=== PATIENT | female | born 1995 | race Native Hawaiian/Other Pacific Islander ===

== ENCOUNTER 2018-08-03 05:30 | Inpatient (IN) | payer BC, OTHER ==
[2018-08-03] MEDS ORDERED: METHYLERGONOVINE 0.2 MG/ML 1 ML AMP IM PRN (06:10)
[2018-08-03] MEDS ORDERED: TERBUTALINE 1 MG/ML VIAL SQ PRN (06:10)
[2018-08-03] MEDS ORDERED: LIDOCAINE 1% INJ 10MG/ML (20 ML MDV) SQ PRN (06:10)
[2018-08-03] MEDS ORDERED: CARBOPROST TROMETHAMINE 250 MCG/ML 1 ML AMP IM PRN (06:10)
[2018-08-03] MEDS ORDERED: OXYTOCIN 10 UNIT/ML 1 ML VIAL IM PRN (06:10)
[2018-08-03 07:08] VITALS: BMI 35.4
[2018-08-03 07:50] LABS: Appearance,Urine Clear (Clear); Bacteria,Urine Rare /hpf; Bilirubin,Urine Negative (Negative); Blood,Urine Trace (Negative); Color,Urine Light Yellow; Glucose,Urine (UA) Negative (Negative); Ketones,Urine Negative (Negative); Leukocyte Esterase,Urine Negative (Negative); Nitrite,Urine Negative (Negative); PH, Urine 6.5 (5.0-8.0); Protein,Urine Negative (Negative); RBC,Urine 3 /hpf (0-5); Specific Gravity,Urine 1.006 (1.001-1.035); Squamous Epithelial Cell,Urine <1 /hpf (0-4); Urobilinogen,Urine <2.0 mg/dL (<2.0); WBC,Urine 2 /hpf (0-5)
[2018-08-03 10:59] LABS: Amphetamine Screen,Urine Not Detected (NotDetected); Barbiturate Screen,Urine Not Detected (NotDetected); Benzodiazepines Screen,Urine Not Detected (NotDetected); Cocaine Screen,Urine Not Detected (NotDetected); Methadone Screen, Urine Not Detected (NotDetected); Opiate Screen,Urine Not Detected (NotDetected); Oxycodone Screen, Urine Not Detected (NotDetected); Phencyclidine Screen,Urine Not Detected (NotDetected); Tricyclic Antidepressant,Urine Not Detected (NotDetected); Urn Cannabinoid Scrn Not Detected (NotDetected)
[2018-08-03] MEDS ORDERED: LIDOCAINE-PRILOCAINE 2.5-2.5% CREAM 5 GM TUBE TOPICAL STA (14:38)
[2018-08-03] MEDS ORDERED: AMPICILLIN 2,000 MG in SODIUM CHLORIDE 0.9% 100 ML IVPB STA (15:49)
[2018-08-03] MEDS ORDERED: OXYTOCIN 20 UNITS/1000 ML NS 1,000 ML IV SCH (16:00)
[2018-08-03] MEDS: LACTATED RINGERS 1,000 ML IV SCH (16:01)
[2018-08-03 16:08] LABS: Basophils % (A) 0 %; Eosinophils % (A) 0 %; HCT 37.6 % (34.0-46.0); HGB 12.6 gm/dL (11.4-16.0); Lymphocytes # (A) 1.1 k/uL (1.0-4.8); Lymphocytes % (A) 5 %; MCHC 33.4 g/dL (31.0-37.0); MCV 95.7 fL (80.0-100.0); Mean Platelet Volume 8.8; Monocytes # (A) 1.1 k/uL (0-1.0); Monocytes % (A) 5 %; Neutrophils # (A) 18.7 k/uL (1.3-7.7); Neutrophils % (A) 88 %; Platelet Count 214 k/uL (150-450); RBC 3.93 m/uL (3.80-5.40); RDW 13.5 % (11.5-15.5); WBC 21.2 k/uL (3.8-10.6)
[2018-08-03] MEDS ORDERED: BUTORPHANOL 1 MG/ML 1 ML VIAL IV PRN (16:45)
[2018-08-03] MEDS ORDERED: ROPIVACAINE 5MG/ML 20ML VIAL ONE (19:40)
[2018-08-03] MEDS ORDERED: fentaNYL (PF) 50 MCG/ML 5 ML AMP ONE (19:40)
[2018-08-03] MEDS ORDERED: SODIUM CHLORIDE 0.9% 100 ML BAG ONE (19:40)
[2018-08-03] MEDS: AMPICILLIN 1,000 MG in SODIUM CHLORIDE 0.9% 50 ML IVPB SCH (20:31)
[2018-08-03 23:40] LABS: HIV 1 AB Non-Reactive (Non-Reactive); HIV AB P24 Non-Reactive (Non-Reactive); HIV P24 AG Non-Reactive (Non-Reactive)
[2018-08-04] MEDS: AMPICILLIN 1,000 MG in SODIUM CHLORIDE 0.9% 50 ML IVPB SCH (00:39)
[2018-08-04] MEDS: LACTATED RINGERS 1,000 ML IV SCH (00:39)
[2018-08-04] MEDS ORDERED: BENZOCAINE/MENTHOL SPRAY 1 GM/SPRAY AEROSOL TOPICAL PRN (01:09)
[2018-08-04] MEDS ORDERED: HYDROCORTISONE 2.5% RECTAL CREAM 30 GM TUBE RECTAL PRN (01:09)
[2018-08-04] MEDS ORDERED: WITCH HAZEL 1 EACH MED..PAD TOPICAL PRN (01:09)
[2018-08-04] MEDS ORDERED: LANOLIN CREAM 5 GM TUBE TOPICAL PRN (01:09)
[2018-08-04] MEDS ORDERED: diphenhydrAMINE 50 MG/ML 1 ML VIAL IVP PRN ×2 (01:09)
[2018-08-04] MEDS ORDERED: diphenhydrAMINE 25 MG CAP PO PRN (01:09)
[2018-08-04] MEDS ORDERED: IBUPROFEN 600 MG TAB PO PRN (01:09)
[2018-08-04] MEDS ORDERED: diphenhydrAMINE 50 MG CAP PO PRN (01:09)
[2018-08-04] MEDS ORDERED: ZOLPIDEM 5 MG TAB PO PRN (01:09)
[2018-08-04] MEDS ORDERED: SIMETHICONE 80 MG CHEWABLE PO PRN (01:09)
[2018-08-04] MEDS ORDERED: ACETAMINOPHEN TAB 325 MG TAB PO PRN (01:09)
[2018-08-04] MEDS ORDERED: OXYTOCIN 20 UNITS/1000 ML NS 1,000 ML IV SCH (01:15)
--- NOTE | 2018-08-04 01:19 | P.HPOB ---
History of Present Illness H&P Date: 08/03/18 Chief Complaint: SROM 22 year old presents at 39 weeks 6 days with spontaneous rupture of membranes at 3:30 AM on 08/03/2018. She presented to the hospital 1-2 cm dilated, 80% effaced, and -2 station. She was glenny irregularly. heart tones 130 to 135 with moderate variability and reactive. Review of Systems All systems: negative Constitutional: Denies chills, Denies fever Eyes: denies blurred vision, denies pain Ears, nose, mouth and throat: Denies headache, Denies sore throat Cardiovascular: Denies chest pain, Denies shortness of breath Respiratory: Denies cough Gastrointestinal: Denies abdominal pain, Denies diarrhea, Denies nausea, Denies vomiting Genitourinary: Denies dysuria, Denies hematuria Musculoskeletal: Denies myalgias Integumentary: Denies pruritus, Denies rash Neurological: Denies numbness, Denies weakness Psychiatric: Denies anxiety, Denies depression Endocrine: Denies fatigue, Denies weight change Past Medical History Past Medical History: No Reported History Additional Past Medical History / Comment(s): OB history: She has had care with me since the first trimester but has refused to get any type of bloodwork done for the due to a phobia of needles. Normal anatomy US- male, GBS neg. History of Any Multi-Drug Resistant Organisms: None Reported Additional Past Surgical History / Comment(s): dental surg Past Anesthesia/Blood Transfusion Reactions: No Reported Reaction Past Psychological History: Anxiety Smoking Status: Former smoker Past Alcohol Use History: None Reported Past Drug Use History: None Reported - Past Family History Father Family Medical History: Asthma Medications and Allergies Home Medications Medication Instructions Recorded Confirmed Type Pnv,Calcium 72/Iron/Folic Acid 1 tab PO DAILY 08/03/18 08/03/18 History [ Plus Tablet] Allergies Allergy/AdvReac Type Severity Reaction Status Date / Time No Known Allergies Allergy Verified 08/03/18 06:10 Exam Osteopathic Statement: *. No significant issues noted on an osteopathic structural exam other than those noted in the History and Physical/Consult. Vital Signs Temp Pulse Resp BP 08/03/18 05:30 96.8 F L 96 20 120/76 Intake and Output 08/03/18 08/03/18 08/04/18 14:59 22:59 05:59 Intake Total 100 Output Total 200 Balance 100 -200 Intake: Oral 100 Output: Urine 200 Other: # Voids 3 Heart: Regular rate and rhythm Lungs: Clear to auscultation bilaterally Abdomen: Soft, nontender Extremities: Negative Homans sign Results Result Diagrams: 08/03/18 15:30 08/03/18 15:30 Abnormal Lab Results - Last 24 Hours (Table) 08/03/18 08/03/18 Range/Units 07:11 15:30 WBC 21.2 H (3.8-10.6) k/uL Neutrophils # 18.7 H (1.3-7.7) k/uL Monocytes # 1.1 H (0-1.0) k/uL Urine Blood Trace H (Negative) Urine Bacteria Rare H (None) /hpf Assessment and Plan (1) Spontaneous rupture of membranes Current Visit: Yes Status: Acute Code(s): [id number] - SNOMED Code(s): 225184891 Plan: 1. admit to [facility] 2. pitocin augmentation if necessary 3. draw labs 4. anticipate normal vaginal delivery
--- NOTE | 2018-08-04 01:29 | P.PROBDLV ---
Vaginal Delivery Note - . Vaginal Delivery Note: 22-year-old presented at 39 weeks and 6 days was sent instrument at 3:30 AM, clear fluid noted. Her cervix is dilated 1-2 cm, 80% effaced, -2 station. She is glenny irregularly. heart tones 130 to 135 with moderate variability and reactive. When she presented to the hospital she was told she was maintained needing IV and some labs drawn. She knew this from the office, we had extensive conversations about this in the office and she was aware that this was going to be part of the delivery process. Rosy, despite saying that she would consent to NIV would not give the nurses or me for hand or arm 2 with IV into. She would get set up for the IV and then pulled her arm away at the last minute. This went on for several hours. Finally Hemo-Flow plan to give her some nitrous oxide to relax her and then get the IV in her left arm. At this time labs were also drawn. The baby's heart rate was 145-150 throughout this procedure continued with moderate variability. At this point she was almost 12 hours ruptured and I did start IV antibiotics, ampicillin, because she was still 3 cm dilated, 90% effaced, and -1 station. Also started Pitocin augmentation. Her contractions get closer together and stronger. When she was about 4 cm dilated she did get an epidural and was comfortable with that. She was told not to get up out of bed with this epidural several times by the nursing staff and anesthesia. At one point though she was found out of bed in the bathroom having gotten there by herself and with a family member. Thankfully she was not injured or have a fall. When she was 7 cm dilated she started to squat on the bed and push involuntarily. She was completely dilated at 1:15 AM, pushed, and delivered a viable male infant over midline episiotomy under epidural anesthesia at 1:40 AM Episiotomy was cut after the patient had pushed to and then started to panic because she was in more pain. Head delivered OA, anterior shoulder delivered gentle downward guidance followed by posterior shoulder and rest of body. Nose and mouth bulb suctioned , cord clamped and cut, placed on mother's abdomen. Apgars 8, 8, weight 8 lbs. 10 oz. Placenta delivered spontaneously, intact with three-vessel cord at 1:44 AM. Pitocin bolus was started and I drained her blood bladder of all urine. Vagina, cervix, and perineum were inspected. Second-degree midline episiotomy was repaired with 3-0 Vicryl. At this time she was noted to have some increased bleeding site evacuated. Several clots, and if her Methergine 0.2 IM in the right thigh. EBL 200 mL. Mother and baby in stable condition.
[2018-08-04] MEDS: SENNOSIDES-DOCUSATE SODIUM 1 EACH TAB PO SCH (15:35)
[2018-08-05] MEDS: SENNOSIDES-DOCUSATE SODIUM 1 EACH TAB PO SCH ×2 (00:05→08:00)
--- NOTE | 2018-08-05 08:19 | P.DS ---
Providers Date of admission: 08/03/18 05:31 Expected date of discharge: 08/05/18 Attending physician: Jocelynn Dawkins Primary care physician: Stated None - Discharge Diagnosis(es) (1) Spontaneous rupture of membranes Current Visit: Yes Status: Resolved (2) Normal vaginal delivery Current Visit: Yes Status: Acute Hospital Course: Patient presented with spontaneous rupture of membranes. She underwent Pitocin augmentation and normal vaginal delivery under epidural anesthesia. Her course was uncomplicated. She'll be discharged home day # 1 in stable condition to follow-up with me in 6 weeks. Plan - Discharge Summary New Discharge Prescriptions: No Action Pnv,Calcium 72/Iron/Folic Acid [ Plus Tablet] 1 tab PO DAILY Discharge Medication List Pnv,Calcium 72/Iron/Folic Acid [ Plus Tablet] 1 tab PO DAILY 08/03/18 [ History] Follow up Appointment(s)/Referral(s): Jocelynn Dawkins DO [Doctor of Osteopathic Medicine] - 6 Weeks Discharge Disposition: HOME SELF-CARE
[2018-08-05 08:52] VITALS: BP 114/65; PULSE 85; RESP 18; TEMP 98.1
== END 2018-08-05 15:45 | disposition home or self-care (01) | DRG 807 ==
LOC: FBPOP 05:30 → 4FBP 05:31
PROVIDERS: ADMIT Obstetrics & Gynecology; ATTEND Obstetrics & Gynecology
PROC: 10E0XZZ Delivery of Products of Conception, External Approach (ICD-10-PCS; principal; 2018-08-04)
PROC: 00HU33Z Insertion of Infusion Device into Spinal Canal, Percutaneous Approach (ICD-10-PCS; 2018-08-04)
PROC: 3E0R3BZ Introduction of Anesthetic Agent into Spinal Canal, Percutaneous Approach (ICD-10-PCS; 2018-08-04)
PROC: 0W8NXZZ Division of Female Perineum, External Approach (ICD-10-PCS; 2018-08-04)
DX: O99.344 Other mental disorders complicating childbirth (principal); Z37.0 Single live birth; F41.9 Anxiety disorder, unspecified; Z3A.39 39 weeks gestation of pregnancy; Z87.891 Personal history of nicotine dependence; Z82.5 Family history of asthma and other chronic lower respiratory diseases
CPT/HCPCS: 80306; 81001; 82947; 85025; 86762; 86780; 86850; 86900; 86901; 87340; 87390; 88307